=== PATIENT | male | born 1990 | race American Indian/Alaskan Native ===

== ENCOUNTER 2018-01-02 13:55 | Emergency (ER) | payer MEDICAID ==
[2018-01-02 14:01] VITALS: BP 131/86; PULSE 93; RESP 16; TEMP 98.1; O2SAT 100
--- NOTE | 2018-01-02 14:43 | ED PDOC ---
HPI: General Adult Time Seen by Provider: 01/02/18 14:11 Chief Complaint (Nursing): Abnormal Labs Chief Complaint (Provider): Abnormal Labs History Per: Patient History/Exam Limitations: no limitations Recently: Treated By A Physician Additional Complaint(s): Mr. Reynolds is a 27 year old male who was sent by PMD for treatment of (+) syphilis results. Patient tested as outpatient. Denies fever, chills, rash, urinary symptoms, abdominal pain. PMD: Jerald Vogel Past Medical History Reviewed: Historical Data, Nursing Documentation, Vital Signs Vital Signs: Last Vital Signs Temp 98.1 F 01/02/18 13:59 Pulse 93 H 01/02/18 13:59 Resp 16 01/02/18 13:59 BP 131/86 01/02/18 13:59 Pulse Ox 100 01/02/18 15:13 - Medical History PMH: No Chronic Diseases - Surgical History Other surgeries: Left leg fasciotomy - Family History Family History: States: Unknown Family Hx - Social History Current smoker - smoking cessation education provided: No Alcohol: Social Drugs: Denies - Allergies Allergies/Adverse Reactions: Allergies Allergy/AdvReac Type Severity Reaction Status Date / Time No Known Allergies Allergy Verified 01/02/18 13:58 Review of Systems ROS Statement: Except As Marked, All Systems Reviewed And Found Negative Constitutional: Negative for: Fever, Chills Skin: Negative for: Rash Physical Exam - Physical Exam Comments: GENERAL APPEARANCE: Patient is awake, alert, oriented x 3, in no painful distress. SKIN: Warm, dry; (-) cyanosis. NECK: (-) tenderness, (-) stiffness, (-) lymphadenopathy. CHEST AND RESPIRATORY: (-) rales, (-) rhonchi, (-) wheezes; breath sounds equal bilaterally. HEART AND CARDIOVASCULAR: (-) irregularity; (-) murmur, (-) gallop. ABDOMEN AND GI: (-) distention. Bowel sounds active; (-) tenderness, (-) guarding, (-) rebound, (-) palpable masses, (-) CVA tenderness. EXTREMITIES: (-) deformity, (-) edema, (+) distal pulses. NEURO AND PSYCH: Mental status as above; (-) focal findings. - ECG O2 Sat by Pulse Oximetry: 100 (RA) Pulse Ox Interpretation: Normal Medical Decision Making Medical Decision Making: Time: 14:22 Plan: - Jerardo Reina-Valerio inj Advised to follow up with primary care physician. Return to the emergency room at any time for any new or worsening symptoms. Patient states he fully agrees with and understands discharge instructions. States that he agrees with the plan and disposition. Verbalized and repeated discharge instructions and plan. I have given the patient opportunity to ask any additional questions. Scribe Attestation: Documented by Shar Baez, acting as a scribe for Destinee Osborne PA-C. Provider Scribe Attestation: All medical record entries made by the Scribe were at my direction and personally dictated by me. I have reviewed the chart and agree that the record accurately reflects my personal performance of the history, physical exam, medical decision making, and the department course for this patient. I have also personally directed, reviewed, and agree with the discharge instructions and disposition. Disposition - Clinical Impression Clinical Impression: Syphilis - Patient ED Disposition Is Patient to be Admitted: No Counseled Patient/Family Regarding: Diagnosis, Need For Followup - Disposition Disposition: Routine/Home Disposition Time: 15:08 Condition: STABLE Additional Instructions: Thank you for letting us take care of you today. You were treated for syphilis. The emergency medical care you received today was directed at your acute symptoms. Return to the Emergency Department if your symptoms worsen, do not improve, or if you have any other problems. Please contact your doctor in 2 days for re-evaluation and follow up. Bring any paperwork you were given at discharge with you along with any medications you are taking to your follow up visit. Our treatment cannot replace ongoing medical care by a primary care provider (PCP) outside of the emergency department. Thank you for allowing the [facility] team to be part of your care today. Instructions: Syphilis Forms: [employer] ([place]) - PA / INTERNET MARKETING ANALYST / Resident Statement MD/DO has reviewed & agrees with the documentation as recorded.
[2018-01-02] MEDS ORDERED: Penicillin G Benzathine 2.4 Mill Unit/4 ml Syr IM ONE (15:00)
== END 2018-01-02 15:13 | disposition home or self-care (01) ==
LOC: H.ER 13:55
DX: A53.9 Syphilis, unspecified (principal)
CPT/HCPCS: 96372; 99281; J0561